=== PATIENT | male | born 1975 | race Caucasian/White ===

== ENCOUNTER 2019-02-02 11:33 | Day surgery (SDC) | payer MEDICAID ==
[2019-02-02] VITALS (16 sets, daily range): BP systolic 118–135; BP diastolic 70–89
[~2019-02-02] VITALS: Ht 177.8 cm; Wt 90.7 kg
[~2019-02-02 11:33] MED LIST: DOXA4TAB5 PO; HYDR50TA3 PO; LOSA100T57 PO
[2019-02-02] MEDS ORDERED: famotidine 20mg tablet PO ONE (12:30)
[2019-02-02] MEDS ORDERED: ringers solution, lacted 1,000 ML IV SCH ×2 (12:30→14:10)
[2019-02-02] MEDS ORDERED: cefazolin/dext.iso 2gm/100 ML IV ONE (12:30)
[2019-02-02 13:21] LABS: BASOPHILS % (AUTO) 0.9 % (0-1); EOSINOPHILS # (AUTO) 0.1 X10'3 (0-0.9); EOSINOPHILS % (AUTO) 2.2 % (0-6); LYMPHOCYTES # (AUTO) 1.2 X10'3 (1.1-4.8); LYMPHOCYTES % (AUTO) 32.7 % (21-51); MEAN CORPUSCULAR HEMOGLOBIN 31.6 PG (27.0-31.0); MEAN CORPUSCULAR HGB CONC 35.3 g/dL (33.0-36.5); MEAN CORPUSCULAR VOLUME 89.4 FL (78-98); MEAN PLATELET VOLUME 9.7 FL (7.4-10.4); MONOCYTES # (AUTO) 0.3 X10'3 (0-0.9); MONOCYTES % (AUTO) 7.1 % (2-12); NEUTROPHILS % (AUTO) 57.1 % (42-75); PRE OP HEMATOCRIT 42.7 % (42.0-52.0); PRE OP HEMOGLOBIN 15.1 g/dL (14.0-17.9); PRE OP PLATELET COUNT 159 X10'3 (140-440); RED BLOOD COUNT 4.78 X10'6 (4.70-6.10); RED CELL DISTRIBUTION WIDTH 12.8 % (11.5-14.5)
[2019-02-02 13:43] LABS: ALBUMIN 4.1 G/DL (3.4-5.0); ALBUMIN/GLOBULIN RATIO 1.3 (1.1-1.5); ALKALINE PHOSPHATASE 52 IU/L (46-116); BLOOD UREA NITROGEN 22 MG/DL (7-18); BUN/CREATININE RATIO 19.8 (5.4-32.0); CALCIUM 8.9 MG/DL (8.5-10.1); CHLORIDE 108 MMOL/L (99-107); CREATININE 1.11 MG/DL (0.60-1.10); PRE OP ALT 28 U/L (30-65); PRE OP ANION GAP 9 (8-16); PRE OP AST 13 U/L (10-37); PRE OP BILIRUB, TOTAL 0.8 MG/DL (0.0-1.0); PRE OP GLUCOSE 100 MG/DL (70-104); PRE OP POTASSIUM 3.8 MMOL/L (3.4-5.1); PRE OP SODIUM 143 MMOL/L (135-145); TOTAL CARBON DIOXIDE 25.9 MMOL/L (24-32); TOTAL PROTEIN 7.3 G/DL (6.4-8.2); eGFR 73 ML/MIN
[2019-02-02] MEDS ORDERED: proCHLORperazine 10 MG/2 ml inj IV PRN (14:10)
[2019-02-02] MEDS ORDERED: ondansetron/PF 4mg/2ml inj IV PRN (14:10)
[2019-02-02] MEDS ORDERED: morphine 4 MG/ML inj SYRINge IV PRN ×2 (14:10)
[2019-02-02] MEDS ORDERED: meperidine/PF 25mg/ml syringe IV PRN ×3 (14:10)
[2019-02-02] MEDS ORDERED: BUPIVAcaine/PF 2.5 mg/ml (0.25%) 30ml vial ONE (14:40)
[2019-02-02] MEDS ORDERED: LIDOcaine 1% 30ml preserv. free vial ONE (14:40)
[2019-02-02] MEDS ORDERED: ROPIVAcaine 0.5% (5mg/ml) 30ml vial ONE (14:40)
[2019-02-02] MEDS ORDERED: ketorolac trometh. 30mg/ml inj. ONE ×2 (14:40→16:20)
[2019-02-02] MEDS ORDERED: fentaNYL/PF 50MCG/1 ML 2ML syringe ONE (15:03)
[2019-02-02] MEDS ORDERED: midazolam 2 mg/2 ml injection ONE (15:04)
[2019-02-02] MEDS ORDERED: rocuronium 10mg/ml inj IV ONE (15:11)
[2019-02-02] MEDS ORDERED: propofol inj 20 ML IV ONE (15:11)
[2019-02-02] MEDS ORDERED: ondansetron/PF 4mg/2ml inj ONE (15:17)
[2019-02-02] MEDS ORDERED: glycopyrrolate 0.2mg/ml inj ONE (16:20)
[2019-02-02] MEDS ORDERED: neostigmine methylsulfate 1 MG/ML 10ml vial ONE (16:20)
--- NOTE | 2019-02-02 16:28 | NUR ---
Received from OR via BED, accompanied by Anesthesiologist DR WANG and report given by Anesthesiologist. PT VERY DROWSY, DENIES PAIN, NO S/S OF DISTRESS/DISCOMFORT, ABDOMEN W/ABDOMINAL BINDER CDI, W/3 LAP SITES W/BANDAIDS UNDER BINDER. Addendum: 02/02/19 at 1650 by Kaylene Candelaria RN Amended: Links added.
[2019-02-02] MEDS ORDERED: oxyCODONE/APAP 10/325mg tablet PO PRN (18:10)
[2019-02-02] MEDS ORDERED: oxyCODONE/APAP 5-325mg tablet PO PRN (18:10)
--- NOTE | 2019-02-02 18:58 | NUR ---
D/C INSTRUCTIONS GIVEN AND GONE OVER W/PT, PT VERBALIZES UNDERSTANDING, PT D/CD TO HOME VIA W/C TO PRIVATE VEHICLE W/O INCIDENT. Addendum: 02/02/19 at 1917 by Kaylene Candelaria RN Amended: Links added.
== END 2019-02-02 18:58 | disposition home or self-care (01) ==
LOC: PAS 11:33
PROVIDERS: ATTEND Surgery
DX: K42.9 Umbilical hernia without obstruction or gangrene (principal); K43.9 Ventral hernia without obstruction or gangrene; G47.30 Sleep apnea, unspecified; I10 Essential (primary) hypertension; E66.9 Obesity, unspecified; Z68.28 Body mass index [BMI] 28.0-28.9, adult; Z72.89 Other problems related to lifestyle; Z79.899 Other long term (current) drug therapy; Z88.8 Allergy status to other drugs, medicaments and biological substances; Z82.49 Family history of ischemic heart disease and other diseases of the circulatory system; Z83.3 Family history of diabetes mellitus; Z80.9 Family history of malignant neoplasm, unspecified
CPT/HCPCS: 36415; 49652; 64488; 80053; 82948; 85025; 93005; C1781; J1885; J2001; J2250; J2405; J2704; J2710; J3010; J3490; J7120; S2900; A4215; A4618; J2795